=== PATIENT | male | born 1970 | race Caucasian/White ===

== ENCOUNTER 2021-04-02 14:49 | Emergency (ER) | payer OTHER ==
[2021-04-02 15:04] VITALS: BP 152/96; PULSE 88; RESP 16; TEMP 97.6
[2021-04-02] MEDS ORDERED: SULFAMETHOX-TMP 800-160MG 1 EACH TAB PO STA (15:18)
[2021-04-02] MEDS ORDERED: DIPH,PERTUS(ACELL)TETVAC-LF 0.5 ML VIAL IM ONE (15:18)
[2021-04-02] MEDS ORDERED: CEPHALEXIN 500 MG CAP PO STA (15:19)
--- NOTE | 2021-04-02 15:31 | ED ---
General Adult HPI - General Chief complaint: Head Injury Stated complaint: [facility]- hit head then fell Time Seen by Provider: 04/02/21 15:11 Source: patient, RN notes reviewed, old records reviewed Mode of arrival: wheelchair Limitations: no limitations - History of Present Illness Initial comments: 50-year-old male presents for evaluation of head injury. Patient had fallen, striking his head on a shelf approximately 3 days ago. He did lose consciousness. He's had increased pain and swelling at the site of injury on his right forehead. He denies anticoagulation. Denies focal numbness or weakness. Patient had an abrasion and hematoma. He's had some lymph nodes that he's noticed behind his ear over the past several days. No fevers. No vision changes. - Related Data Previous Rx's Medication Instructions Recorded Cephalexin [Keflex] 500 mg PO QID 10 Days #40 cap 04/02/21 Sulfamethox-Tmp 800-160Mg [Bactrim 1 tab PO Q12HR #28 tab 04/02/21 DS 800-160 mg] Allergies Allergy/AdvReac Type Severity Reaction Status Date / Time No Known Allergies Allergy Verified 04/02/21 15:00 Review of Systems ROS Statement: Those systems with pertinent positive or pertinent negative responses have been documented in the HPI. ROS Other: All systems not noted in ROS Statement are negative. Past Medical History Past Medical History: No Reported History History of Any Multi-Drug Resistant Organisms: None Reported Past Surgical History: No Surgical Hx Reported Past Psychological History: No Psychological Hx Reported Smoking Status: Current every day smoker Past Alcohol Use History: None Reported Past Drug Use History: None Reported General Exam Limitations: no limitations General appearance: alert, in no apparent distress Head exam: Present: normocephalic. Absent: atraumatic (Frontal hematoma with cellulitis and small abrasion, no fluctuance, there is pre-and postauricular lymphadenopathy.) Neck exam: Present: normal inspection. Absent: tenderness, meningismus Respiratory exam: Present: normal lung sounds bilaterally. Absent: respiratory distress, wheezes Cardiovascular Exam: Present: regular rate, normal rhythm GI/Abdominal exam: Present: soft. Absent: distended, tenderness, guarding Extremities exam: Present: normal inspection, normal capillary refill. Absent: pedal edema Back exam: Present: normal inspection, full ROM Neurological exam: Present: alert, oriented X3, CN II-XII intact. Absent: motor sensory deficit Psychiatric exam: Present: normal affect, normal mood Skin exam: Present: warm, abrasion (Abrasion and cellulitis of the forehead, right side.) Course Vital Signs 04/02/21 15:00 Temperature 97.6 F Pulse Rate 88 Respiratory 16 Rate Blood Pressure 152/96 O2 Sat by Pulse 97 Oximetry Medical Decision Making - Medical Decision Making 50-year-old male status post fall with positive LOC. He is presenting for evaluation of both head injury and suspected infection. He does appear to have a cellulitis which likely stems from abrasion on the 4 head. There is no fluctuance or drainable abscess. He is initiated on Bactrim and Keflex while in the emergency department. His tetanus is updated. Head CT is performed which i s negative for intracranial hemorrhage or mass effect. There is expected soft tissue swelling in the right frontal region. Disposition Clinical Impression: Concussion with loss of consciousness, Cellulitis of forehead Disposition: HOME SELF-CARE Instructions (If sedation given, give patient instructions): Concussion (ED), Cellulitis (ED) Additional Instructions: Wheeze monitor the cellulitis on her forehead for worsening signs of infection. Please take antibiotics as prescribed. Please return if there is any worsening. Prescriptions: Sulfamethox-Tmp 800-160Mg [Bactrim DS 800-160 mg] 1 tab PO Q12HR #28 tab Cephalexin [Keflex] 500 mg PO QID 10 Days #40 cap Is patient prescribed a controlled substance at d/c from ED?: No Referrals: None,Stated [Primary Care Provider] - 1-2 days Allie Longo MD [REFERRING] - 1-2 days Time of Disposition: 15:30
--- NOTE | 2021-04-02 16:06 | CT ---
EXAMINATION TYPE: CT brain wo con DATE OF EXAM: 04/02/2021 COMPARISON: Trauma with pain HISTORY: Head injury CT DLP: 1128.5 mGycm Automated exposure control for dose reduction was used. FINDINGS: Calvarium intact. Ventricular system midline. No displacement. Orbits symmetric. No diagnostic evidence of acute hemorrhage or mass effect. No midline shift. Craniocervical junction maintained. Ventricular system midline. Tiny calcification adjacent to the frontal horn. IMPRESSION: NO ACUTE HEMORRHAGE OR MASS EFFECT.
== END 2021-04-02 16:26 | disposition home or self-care (01) ==
LOC: EC 14:49
DX: S06.0X9A Concussion with loss of consciousness of unspecified duration, initial encounter (principal); L03.211 Cellulitis of face; S00.83XA Contusion of other part of head, initial encounter; F17.200 Nicotine dependence, unspecified, uncomplicated; W19.XXXA Unspecified fall, initial encounter
CPT/HCPCS: 70450; 90471; 90715; 99284

== ENCOUNTER 2021-04-04 09:31 | Emergency (ER) | payer OTHER ==
[2021-04-04 09:35] VITALS: BP 160/89; PULSE 85; RESP 18; TEMP 98.1
[2021-04-04] MEDS ORDERED: PROPARACAINE 0.5% OPHTH DROPS 15 ML BTL RIGHT EYE STA (09:55)
[2021-04-04] MEDS ORDERED: FLUORESCEIN STRIPS 1 MG STRIP RIGHT EYE ONE (09:55)
[2021-04-04] MEDS ORDERED: valACYclovir HCL 1,000 MG TABLET PO STA (11:09)
--- NOTE | 2021-04-04 11:12 | ED ---
General Adult HPI - General Chief complaint: Recheck/Abnormal Lab/Rx Stated complaint: [facility]-head injury/revisit Time Seen by Provider: 04/04/21 09:42 Source: patient, RN notes reviewed Mode of arrival: ambulatory Limitations: no limitations - History of Present Illness Initial comments: 50-year-old male presents emergency Department chief complaint of rash to the face, recheck. Patient states that he bumped his had a few days ago seen in emergency department had a CAT scan and was told he had some cellulitis of his forehead. He was placed on Keflex, Bactrim patient states is progressively worse. Patient states his right eyelid is swollen. He denies any ocular pain he states if he opens his eye was fingers he does not have any blurred vision. - Related Data Previous Rx's Medication Instructions Recorded Cephalexin [Keflex] 500 mg PO QID 10 Days #40 cap 04/02/21 Sulfamethox-Tmp 800-160Mg [Bactrim 1 tab PO Q12HR #28 tab 04/02/21 DS 800-160 mg] valACYclovir HCL [Valtrex] 1,000 mg PO Q8HR #30 tab 04/04/21 Allergies Allergy/AdvReac Type Severity Reaction Status Date / Time No Known Allergies Allergy Verified 04/04/21 09:32 Review of Systems ROS Statement: Those systems with pertinent positive or pertinent negative responses have been documented in the HPI. ROS Other: All systems not noted in ROS Statement are negative. Past Medical History Past Medical History: No Reported History History of Any Multi-Drug Resistant Organisms: None Reported Past Surgical History: No Surgical Hx Reported Past Psychological History: No Psychological Hx Reported Smoking Status: Current every day smoker Past Alcohol Use History: None Reported Past Drug Use History: None Reported General Exam Limitations: no limitations General appearance: alert, in no apparent distress Head exam: Present: atraumatic, normocephalic. Absent: normal inspection (Forehead there is erythematous based lesions vesicular on the forehead.) Eye exam: Present: normal appearance, PERRL, EOMI, periorbital swelling. Absent: scleral icterus, conjunctival injection, periorbital tenderness Pupils: Present: other (Fluorescein dye, proparacaine and slit lamp use there is no uptake no dendrites noted) ENT exam: Present: normal exam, mucous membranes moist Neck exam: Present: normal inspection. Absent: tenderness, meningismus, lymphadenopathy Respiratory exam: Present: normal lung sounds bilaterally. Absent: respiratory distress, wheezes, rales, rhonchi, stridor Cardiovascular Exam: Present: regular rate, normal rhythm, normal heart sounds. Absent: systolic murmur, diastolic murmur, rubs, gallop, clicks Neurological exam: Present: alert, oriented X3 Skin exam: Present: rash Course Vital Signs 04/04/21 09:32 Temperature 98.1 F Pulse Rate 85 Respiratory 18 Rate Blood Pressure 160/89 O2 Sat by Pulse 98 Oximetry Medical Decision Making - Medical Decision Making Patient has evidence of herpes zoster there is no involvement of the eye noted patient will given ophthalmology follow-up was started on Valtrex. Disposition Clinical Impression: Herpes zoster virus infection of face and ear nerves Disposition: HOME SELF-CARE Condition: Stable Instructions (If sedation given, give patient instructions): Shingles (ED) Additional Instructions: Please return to the Emergency Department if symptoms worsen or any other concerns. Prescriptions: valACYclovir HCL [Valtrex] 1,000 mg PO Q8HR #30 tab Is patient prescribed a controlled substance at d/c from ED?: No Referrals: Nonstaff,Physician [Primary Care Provider] - 1-2 days Cally Shi MD [STAFF PHYSICIAN] - 1-2 days Time of Disposition: 11:12
== END 2021-04-04 12:33 | disposition home or self-care (01) ==
LOC: EC 09:31
DX: B02.8 Zoster with other complications (principal); F17.200 Nicotine dependence, unspecified, uncomplicated
CPT/HCPCS: 99282